=== PATIENT | male | born 1960 | race African-American/Black ===

== ENCOUNTER → 2018-10-12 | Day surgery (SDC) | payer MEDICARE, OTHER ==
[2018-10-09 08:50] LABS: ANION GAP 12.9 mmol/L (8-16); BLOOD UREA NITROGEN 21 mg/dL (7-26); BUN/CREATININE RATIO 19 (6-25); CALCIUM 9.8 mg/dL (8.4-10.2); CARBON DIOXIDE 32 mmol/L (22-29); CHLORIDE 98 mmol/L (98-107); CREATININE, SERUM 1.12 mg/dL (0.72-1.25); EST GLOMERULAR FILTRATION RATE > 60 ML/MIN (60-); GLUCOSE 139 mg/dL (74-118); POTASSIUM 3.9 mmol/L (3.5-5.1); SODIUM 139 mmol/L (136-145)
[~2018-10-12] MED LIST: ACETAMINOPHEN 1000 MG/100 ML 100 ML IV ONE; AMLODIPINE BESY10 MG PO; ASPIRIN81 MG PO; ATORVASTATIN CA20 MG PO; BACITRACIN 50,000 UNIT VIAL ONE; CEFTRIAXONE SOD 1 GM VIAL ONE; DEXAMETHASONE SOD PHOS INJ 4 MG/ML VIAL ONE; EPHEDRINE SULFATE INJ 50 MG/10 ML SYR ONE; FENTANYL CITRATE/PF 100MCG/2 ML INJ ONE; GLIPIZIDE5 MG PO; HUMULIN R100 UNIT/2 SQ; INDAPAMIDE1.25 MG PO; LANTUS 3ML100 UNITS/ SQ; LIDOCAINE HCL 1% 30ML-PF VIAL ONE; LIDOCAINE HCL 2% LOCAL INJ 5 ML SDV VIAL INJ ONE; LISINOPRIL10 MG PO; MIDAZOLAM HCL 2 MG/2 ML VIAL ONE; OMEPRAZOLE40 MG PO; ONDANSETRON HCL INJ 2 MG/ML VIAL ONE; PHENYLEPHRINE HCL 1% 10 MG/ML VIAL ONE; PROPOFOL IV EMULSION 10 MG/ML 20 ML VIAL ONE; SEVOFLURANE INHAL SOLN 250 ML PEN BTL ONE
--- OUTSIDE RECORDS SUMMARY | 2018-10-12 07:49 | XMS REPORT | Summary of Care ---
Author Author [facility] Organization [facility] Address Unknown Phone Unavailable Encounter [facility](CORNEL) [id number] Date(s): 08/11/16 - 08/13/16 [facility] [address] [place] [address]- Final: Unilateral primary osteoarthritis, right knee Discharge Disposition: Home or Self Care Attending Physician: Saul Angel MD Admitting Physician: Saul Angel MD Referring Physician: Saul Angel MD Vital Signs 1 2 3 Most recent to oldest [Reference Range]: 165.1 cm (08/11/16 5:51 PM) 162.56 cm (07/29/16 8:22 AM) Height 98.7 DegF (08/13/16 7:14 AM) 98.9 DegF (08/13/16 4:05 AM) 99.1 DegF (08/12/16 11:59 PM) Temperature Oral [96.4-99.1 DegF] 130/78 mmHg (08/13/16 12:13 PM) 153/88 mmHg *HI* (08/13/16 9:29 AM) 180/80 mmHg *HI* (08/13/16 9:17 AM) Blood Pressure [90-140/60-90 mmHg] 11 BRMIN *LOW* (08/13/16 9:17 AM) 20 BRMIN (08/13/16 7:14 AM) 20 BRMIN (08/13/16 4:05 AM) Respiratory Rate [14-20 BRMIN] 72 bpm (08/13/16 7:14 AM) 70 bpm (08/13/16 4:05 AM) 65 bpm (08/12/16 11:59 PM) Peripheral Pulse Rate [60-100 bpm] 121.449 kg (08/11/16 5:51 PM) 97.909 kg (07/29/16 8:22 AM) Weight 44.56 m2 (08/11/16 5:51 PM) 37.05 m2 (07/29/16 8:22 AM) Body Mass Index Problem List Condition Effective Dates Status Health Status Informant Diabetes(Confirmed) Active Reflux Active esophagitis(Confirme d) HTN Active (hypertension)(Confi rmed) Knee pain(Confirmed) Active Allergies, Adverse Reactions, Alerts Substance Reaction Severity Status NKDA Active Medications acetaminophen (ANES) Route: IV, Drug form: INJ, ONCE, Stop date: 08/11/16 10:27:00 CDT Start Date: 08/11/16 Stop Date: 08/11/16 Status: Completed amLODIPine 10 mg, 1 tab, Route: PO, Drug form: TAB, Daily, Dosing Weight 97.909, kg, Start date: 08/12/16 9:00:00 CDT, Duration: 30 day, Stop date: 09/10/16 9:00:00 CDT Notes: (Same as: Norvasc) Start Date: 08/12/16 Stop Date: 08/13/16 Status: Discontinued amLODIPine 10 mg oral tablet 10 mg=1 tab, PO, Daily, # 30 tab, 0 Refill(s) Start Date: 07/28/16 Status: Ordered Aspirin Enteric Coated 81 mg, 1 tab, Route: PO, Drug form: ECTAB, Daily, Dosing Weight 97.909, kg, Star t date: 08/12/16 9:00:00 CDT, Duration: 30 day, Stop date: 09/10/16 9:00:00 CDT Notes: Do not crush or chew.(Same As: Ecotrin) Start Date: 08/12/16 Stop Date: 08/13/16 Status: Discontinued Aspirin Enteric Coated 81 mg oral delayed release tablet 81 mg=1 tab, PO, Daily, 0 Refill(s) Start Date: 07/28/16 Status: Ordered ceFAZolin (ANES) Route: IV, Drug form: INJ, ONCE, Stop date: 08/11/16 10:27:00 CDT Start Date: 08/11/16 Stop Date: 08/11/16 Status: Completed ceFAZolin (SCIP) + sodium chloride 0.9% 100 mL INJ (for IV set) 100 mL 2 gm, Route: IVPB, Q6H, Dosing Weight 97.909, kg, Start date: 08/11/16 16:00:00 CDT, Duration: 3 doses or times, Stop date: 08/12/16 4:00:00 CDT Notes: (Same As: Deepali Malin) MEDICATION WASTE Product Size: 1000 mgP roduct Wasted: ___ mg Start Date: 08/11/16 Stop Date: 08/12/16 Status: Completed celecoxib 200 mg, 1 cap, Route: PO, Drug form: CAP, B90Mbid, Dosing Weight 97.909, kg, Sta rt date: 08/11/16 12:00:00 CDT, Duration: 30 day, Stop date: 09/10/16 0:00:00 CD T Notes: NSAID. Please check indication. Not for seizure. (Same As: CeleBREX) Start Date: 08/11/16 Stop Date: 08/13/16 Status: Discontinued cloNIDine Route: EPIDURAL, Drug form: INJ, ONCE, Start date: 08/11/16 9:00:00 CDT, Stop da te: 08/11/16 9:00:00 CDT Notes: NOT FOR INTRAVENOUS USE. Preservative-free.(Same As: Duraclon) Start Date: 08/11/16 Stop Date: 08/11/16 Status: Completed cloNIDine (ANES) Route: INTRATHECAL, Drug form: INJ, ONCE, Stop date: 08/11/16 10:47:00 CDT Start Date: 08/11/16 Stop Date: 08/11/16 Status: Completed Dextrose 50% Syringe 12.5 gm, 25 mL, Route: IVP, Drug Form: INJ, Dosing Weight 97.909, kg, PRN, PRN B lood Glucose Results, Start date: 08/11/16 11:56:00 CDT, Duration: 30 day, Stop date: 09/10/16 11:55:00 CDT Start Date: 08/11/16 Stop Date: 08/13/16 Status: Discontinued docusate 100 mg, 1 cap, Route: PO, Drug form: CAP, BID, Dosing Weight 97.909, kg, Start d ate: 08/11/16 17:00:00 CDT, Duration: 30 day, Stop date: 09/10/16 9:00:00 CDT Notes: (Same as: Colace) (Do Not Crush) Start Date: 08/11/16 Stop Date: 08/13/16 Status: Discontinued docusate sodium 100 mg oral capsule 100 mg=1 cap, PO, BID, # 20 cap, 0 Refill(s) Start Date: 08/12/16 Status: Ordered DuoNeb inhalation solution 3 ml, Route: NEB, Drug Form: SOLN, Dosing Weight 97.909, kg, PRN, PRN Respirator y Protocol, Start date: 08/11/16 9:01:00 CDT, Duration: 30 day, Stop date: 09/10 9:00:00 CDT Notes: (Same as: Duoneb) Start Date: 08/11/16 Stop Date: 08/11/16 Status: Discontinued famotidine (ANES) Route: IV, Drug form: INJ, ONCE, Stop date: 08/11/16 10:27:00 CDT Start Date: 08/11/16 Stop Date: 08/11/16 Status: Completed fentaNYL (ANES) Route: IV, Drug form: INJ, ONCE, Stop date: 08/11/16 10:27:00 CDT Start Date: 08/11/16 Stop Date: 08/11/16 Status: Completed glipiZIDE 5 mg oral tablet 5 mg=1 tab, PO, BID-Before Meals, # 30 tab, 1 Refill(s) Start Date: 07/28/16 Status: Ordered glipiZIDE 5 mg oral tablet 5 mg, 1 tab, Route: PO, Drug form: TAB, BID-Before Meals, Dosing Weight 97.909, kg, Start date: 08/11/16 16:30:00 CDT, Duration: 30 day, Stop date: 09/10/16 7:3 0:00 CDT Notes: (Same as: Glucotrol) 30 min before meals. Start Date: 08/11/16 Stop Date: 08/13/16 Status: Discontinued glycopyrrolate (ANES) Route: IV, Drug form: INJ, ONCE, Stop date: 08/11/16 10:52:00 CDT Start Date: 08/11/16 Stop Date: 08/11/16 Status: Completed Humulin N 30 unit, 0.3 mL, Route: SUB-Q, Drug form: INJ, BID, Dosing Weight 97.909, kg, St art date: 08/11/16 17:00:00 CDT, Duration: 30 day, Stop date: 09/10/16 9:00:00 C DT Notes: Roll in palms of hands gently; Do not shake vigorously. (Same as: Humuli n N)Do not hold insulin without contacting prescriberWASTE: F/P - Black; E - [facility] Stable for 28 days at room temperatureExpires in days f rom Date Start Date: 08/11/16 Stop Date: 08/13/16 Status: Discontinued Humulin N 100 units/mL 30 units, SUB-Q, BID, # 10 mL, 0 Refill(s) Start Date: 07/28/16 Status: Ordered hydrOXYzine 25 mg, 1 tab, Route: PO, Drug form: TAB, Q6H, Dosing Weight 97.909, kg, PRN Itch ing, Start date: 08/11/16 11:56:00 CDT, Duration: 30 day, Stop date: 09/10/16 11 :55:00 CDT Notes: (Same as: Atarax) Avoid alcohol. Start Date: 08/11/16 Stop Date: 08/13/16 Status: Discontinued indapamide 2.5 mg oral tablet 2.5 mg=1 tab, PO, QAM, # 30 tab, 0 Refill(s) Start Date: 07/28/16 Status: Ordered indapamide 2.5 mg oral tablet 2.5 mg, 1 tab, Route: PO, Drug form: TAB, QAM, Dosing Weight 97.909, kg, Start d ate: 08/12/16 9:00:00 CDT, Duration: 30 day, Stop date: 09/10/16 9:00:00 CDT Notes: (Same as: Lozol) Start Date: 08/12/16 Stop Date: 08/13/16 Status: Discontinued insulin aspart 10 unit, 0.1 mL, Route: SUB-Q, Drug form: SOLN, TID-Before Meals, Dosing Weight 97.909, kg, PRN Blood Glucose Results, Start date: 08/11/16 11:56:00 CDT, Durati on: 30 day, Stop date: 09/10/16 11:55:00 CDT Notes: Roll in palms of hands gently; Do not shake vigorously. (Same as: Serg Martinez)"single patient use only"WASTE: F/P - Black; E - [facility] Trash Bin Stable f or 28 days at room temperature.Expires in days from Date Start Date: 08/11/16 Stop Date: 08/13/16 Status: Discontinued insulin aspart 6 unit, 0.06 mL, Route: SUB-Q, Drug form: SOLN, TID-Before Meals, Dosing Weight 97.909, kg, PRN Blood Glucose Results, Start date: 08/11/16 11:56:00 CDT, Durati on: 30 day, Stop date: 09/10/16 11:55:00 CDT Notes: Roll in palms of hands gently; Do not shake vigorously. (Same as: Serg Martinez)"single patient use only"WASTE: F/P - Black; E - [facility] Trash Bin Stable f or 28 days at room temperature.Expires in days from Date Start Date: 08/11/16 Stop Date: 08/13/16 Status: Discontinued insulin aspart 8 unit, 0.08 mL, Route: SUB-Q, Drug form: SOLN, TID-Before Meals, Dosing Weight 97.909, kg, PRN Blood Glucose Results, Start date: 08/11/16 11:56:00 CDT, Durati on: 30 day, Stop date: 09/10/16 11:55:00 CDT Notes: Roll in palms of hands gently; Do not shake vigorously. (Same as: Serg Martinez)"single patient use only"WASTE: F/P - Black; E - [facility] Trash Bin Stable f or 28 days at room temperature.Expires in days from Date Start Date: 08/11/16 Stop Date: 08/13/16 Status: Discontinued insulin aspart 2 unit, 0.02 mL, Route: SUB-Q, Drug form: SOLN, TID-Before Meals, Dosing Weight 97.909, kg, PRN Blood Glucose Results, Start date: 08/11/16 11:56:00 CDT, Durati on: 30 day, Stop date: 09/10/16 11:55:00 CDT Notes: Roll in palms of hands gently; Do not shake vigorously. (Same as: NovoLO G)"single patient use only"WASTE: F/P - Black; E - [facility] Trash Bin Stable f or 28 days at room temperature.Expires in days from Date Start Date: 08/11/16 Stop Date: 08/13/16 Status: Discontinued insulin aspart 4 unit, 0.04 mL, Route: SUB-Q, Drug form: SOLN, TID-Before Meals, Dosing Weight 97.909, kg, PRN Blood Glucose Results, Start date: 08/11/16 11:56:00 CDT, Durati on: 30 , Stop date: 09/10/16 11:55:00 CDT Notes: Roll in palms of hands gently; Do not shake vigorously. (Same as: NovoMIMI G)"single patient use only"WASTE: F/P - Black; E - [facility] Trash Bin Stable f or 28 days at room temperature.Expires in days from Date Start Date: 08/11/16 Stop Date: 08/13/16 Status: Discontinued ketOROLAC (ANES) IV, ONCE Start Date: 08/11/16 Stop Date: 08/11/16 Status: Completed Lactated Ringers 1,000 mL 1,000 mL, Rate: 25 ml/hr, Infuse over: 40 hr, Route: IV, Dosing Weight 97.909 kg , Total Volume: 1,000, Start date: 08/11/16 9:01:00 CDT, Stop date: 08/11/16 20: 00:00 CDT Start Date: 08/11/16 Stop Date: 08/11/16 Status: Discontinued Lantus 100 units/mL 20 unit, SUB-Q, Bedtime, # 10 mL, 3 Refill(s) Start Date: 07/28/16 Status: Ordered Lantus 100 units/mL 20 unit, Route: SUB-Q, Drug form: SOLN, Bedtime, Dosing Weight 97.909, kg, Start date: 08/11/16 21:00:00 CDT, Duration: 30 day, Stop date: 09/09/16 21:00:00 CDT Start Date: 08/11/16 Stop Date: 08/11/16 Status: Deleted Levemir FlexPen 20 unit, 0.2 mL, Route: SUB-Q, Drug form: INJ, Bedtime, Start date: 08/11/16 21: 00:00 CDT, Duration: 30 day, Stop date: 09/09/16 21:00:00 CDT Notes: Same as LevemirDo not hold insulin without contacting prescriberWASTE: F/ P - Black; E - [facility] Trash [facility] "single patient use only" Start Date: 08/11/16 Stop Date: 08/13/16 Status: Discontinued lidocaine (ANES) Route: IV, Drug form: INJ, ONCE, Stop date: 08/11/16 11:09:00 CDT Start Date: 08/11/16 Stop Date: 08/11/16 Status: Completed lisinopril 20 mg, 1 tab, Route: PO, Drug form: TAB, Daily, Dosing Weight 97.909, kg, Start date: 08/12/16 9:00:00 CDT, Duration: 30 day, Stop date: 09/10/16 9:00:00 CDT Notes: (Same as: Prinivil Zestril) Start Date: 08/12/16 Stop Date: 08/13/16 Status: Discontinued lisinopril 20 mg oral tablet 20 mg=1 tab, PO, Daily, # 30 tab, 0 Refill(s) Start Date: 07/28/16 Stop Date: 08/11/16 Status: Deleted lisinopril 20 mg oral tablet 20 mg=1 tab, PO, Daily, # 30 tab, 0 Refill(s) Start Date: 07/29/16 Status: Ordered LR 1000 mL INJ (ANES) Route: IV, Total Volume: 1,000, Start date: 08/11/16 9:30:00 CDT, Stop date: 10:30:00 CDT Start Date: 08/11/16 Stop Date: 08/11/16 Status: Completed metoclopramide (ANES) Route: IV, Drug form: INJ, ONCE, Stop date: 08/11/16 11:09:00 CDT Start Date: 08/11/16 Stop Date: 08/11/16 Status: Completed midazolam (ANES) Route: IV, Drug form: SOLN, ONCE, Stop date: 08/11/16 10:27:00 CDT Start Date: 08/11/16 Stop Date: 08/11/16 Status: Completed morphine Sulfate 4 mg, 1 mL, Route: IVP, Drug form: INJ, Q4H, Dosing Weight 121.449, kg, PRN Pain Score 7-10, Start date: 08/12/16 8:20:00 CDT, Duration: 30 day, Stop date: 08/28 04/12 8:19:00 CDT Notes: (Same as:MORPhine Sulfate) Start Date: 08/12/16 Stop Date: 08/13/16 Status: Discontinued morphine Sulfate (ANES) Route: INTRATHECAL, Drug form: INJ, ONCE, Stop date: 08/11/16 10:47:00 CDT Start Date: 08/11/16 Stop Date: 08/11/16 Status: Completed MORPhine sulfate CREDIT SUPPORT SPECIALIST 30 mg/30 ml INJ syringe 30 mg 30 mg, 30 mL, Route: IV, Initial Loading Dose: 2 mg, CREDIT SUPPORT SPECIALIST Dose: 1 mg, CREDIT SUPPORT SPECIALIST Lockou t: 10 minutes, Continuous Basal Rate: 0 mg, 4 Hour Limit (In MG): 30, Drug Form: INJ, Continuous, Start date: 08/11/16 12:00:00 CDT, Duration: 30 day, Stop date: 09/10/16... Notes: Dose: Delay: Basal rate: 4hr limit:( Same as:Aliciai-Jealysa) Start Date: 08/11/16 Stop Date: 08/12/16 Status: Discontinued naloxone 0.04 mg, 0.1 mL, Route: IVP, Drug form: INJ, Q2MIN, Dosing Weight 97.909, kg, VT N Narcotic Reversal, Start date: 08/11/16 11:56:00 CDT, Duration: 30 day, Stop d ate: 09/10/16 11:55:00 CDT Notes: Same as Narcan Start Date: 08/11/16 Stop Date: 08/12/16 Status: Discontinued naloxone 0.04 mg, 0.1 mL, Route: IVP, Drug form: INJ, Q2MIN, Dosing Weight 121.449, kg, P RN Narcotic Reversal, Start date: 08/12/16 8:19:00 CDT, Duration: 30 day, Stop d ate: 09/11/16 8:18:00 CDT Notes: Same as Narcan Start Date: 08/12/16 Stop Date: 08/13/16 Status: Discontinued neostigmine (ANES) Route: IV, Drug form: INJ, ONCE, Stop date: 08/11/16 11:48:00 CDT Start Date: 08/11/16 Stop Date: 08/11/16 Status: Completed omeprazole 20 mg, Route: PO, Drug form: ECTAB, Daily, Dosing Weight 97.909, kg, Start date: 08/12/16 9:00:00 CDT, Duration: 30 day, Stop date: 09/10/16 9:00:00 CDT Start Date: 08/12/16 Stop Date: 08/11/16 Status: Deleted omeprazole 20 mg oral enteric coated tablet 20 mg=1 tab, PO, Daily, # 30 tab, 3 Refill(s) Start Date: 07/28/16 Status: Ordered ondansetron 4 mg, 2 mL, Route: IVP, Drug form: INJ, Q8H, Dosing Weight 97.909, kg, PRN Nause a & Vomiting, Start date: 08/11/16 11:56:00 CDT, Duration: 30 day, Stop date: 09/10/16 11:55:00 CDT Notes: (Same as: Hannah) MEDICATION WASTE Product Size: 4 mgProduct Was franklyn: ___ mg Start Date: 08/11/16 Stop Date: 08/13/16 Status: Discontinued ondansetron (ANES) Route: IV, Drug form: INJ, ONCE, Stop date: 08/11/16 11:48:00 CDT Start Date: 08/11/16 Stop Date: 08/11/16 Status: Completed phenylephrine (ANES) Route: IV, Drug form: INJ, ONCE, Stop date: 08/11/16 10:47:00 CDT Start Date: 08/11/16 Stop Date: 08/11/16 Status: Completed pneumococcal 23-valent vaccine 0.5 mL, Route: IM, Drug Form: INJ, ONCALL, Start date: 08/11/16 18:25:42 CDT, St op date: 09/10/16 18:20:42 CDT Notes: (Same as: Pneumovax 23) Refrigerate Start Date: 08/11/16 Stop Date: 08/13/16 Status: Discontinued propofol (ANES) Route: IV, Drug form: INJ, ONCE, Stop date: 08/11/16 11:09:00 CDT Start Date: 08/11/16 Stop Date: 08/11/16 Status: Completed Protonix 40 mg, 1 tab, Route: PO, Drug form: ECTAB, Before Dinner, Start date: 08/11/16 1 6:30:00 CDT, Duration: 30 day, Stop date: 09/09/16 16:30:00 CDT Notes: Tablet should not be chewed or crushed.(Same as: Protonix) Start Date: 08/11/16 Stop Date: 08/13/16 Status: Discontinued rivaroxaban 10 mg, 1 tab, Route: PO, Drug form: TAB, Daily, Dosing Weight 97.909, kg, Start date: 08/12/16 9:00:00 CDT, Duration: 30 day, Stop date: 09/10/16 9:00:00 CDT Notes: (Same as: Xarelto)Do Not Crush Start Date: 08/12/16 Stop Date: 08/13/16 Status: Discontinued rivaroxaban 10 mg oral tablet 10 mg=1 tab, PO, Daily, # 14 tab, 0 Refill(s) Start Date: 08/12/16 Status: Ordered rocuronium (ANES) Route: IV, Drug form: INJ, ONCE, Stop date: 08/11/16 11:09:00 CDT Start Date: 08/11/16 Stop Date: 08/11/16 Status: Completed Saline Flush 0.9% 10 ml, Route: IVP, Drug Form: INJ, Dosing Weight 121.449, kg, Q12H, Start date: 08/12/16 9:00:00 CDT, Duration: 30 day, Stop date: 09/10/16 21:00:00 CDT Notes: Same as: BD Posiflush Sterile Start Date: 08/12/16 Stop Date: 08/13/16 Status: Discontinued Saline Flush 0.9% 10 ml, Route: IVP, Drug Form: INJ, Dosing Weight 121.449, kg, PRN, PRN Line Flus h, Start date: 08/12/16 8:18:00 CDT, Duration: 30 day, Stop date: 09/11/16 8:17: 00 CDT Notes: Same as: BD Posiflush Sterile Start Date: 08/12/16 Stop Date: 08/13/16 Status: Discontinued sodium chloride 0.45% 1000 ml INJ 1,000 mL 1,000 mL, Rate: 75 ml/hr, Infuse over: 13.3 hr, Route: IV, Dosing Weight 97.909 kg, Total Volume: 1,000, Start date: 08/11/16 11:56:00 CDT, Duration: 30 day, St op date: 09/10/16 11:55:00 CDT Start Date: 08/11/16 Stop Date: 08/12/16 Status: Discontinued tranexamic acid (ANES) Route: IV, Drug form: INJ, ONCE, Stop date: 08/11/16 10:47:00 CDT Start Date: 08/11/16 Stop Date: 08/11/16 Status: Completed Results ELECTROLYTES Most recent to 1 2 oldest [Reference Range]: Sodium Lvl [135-145 139 mEq/L 139 mEq/L mEq/L] (08/12/16 4:04 AM) (07/29/16 8:43 AM) Potassium Lvl 3.7 mEq/L 3.8 mEq/L [3.5-5.1 mEq/L] (08/12/16 4:04 AM) (07/29/16 8:43 AM) Chloride Lvl [95-109 99 mEq/L 102 mEq/L mEq/L] (08/12/16 4:04 AM) (07/29/16 8:43 AM) CO2 [24-32 mEq/L] 32 mEq/L 29 mEq/L (08/12/16 4:04 AM) (07/29/16 8:43 AM) AGAP [10.0-20.0 11.7 mEq/L 11.8 mEq/L mEq/L] (08/12/16 4:04 AM) (07/29/16 8:43 AM) CHEM PANEL Most recent to 1 2 oldest [Reference Range]: Creatinine Lvl 0.96 mg/dL 0.98 mg/dL [0.50-1.40 mg/dL] (08/12/16 4:04 AM) (07/29/16 8:43 AM) eGFR 103 mL/min/1.73m2 1 101 mL/min/1.73m2 2 *NA* *NA* (08/12/16 4:04 AM) (07/29/16 8:43 AM) BUN [7-22 mg/dL] 18 mg/dL 23 mg/dL (08/12/16 4:04 AM) *HI* (07/29/16 8:43 AM) B/C Ratio [6-25] 23 (07/29/16 8:43 AM) Glucose Lvl [70-99 204 mg/dL 255 mg/dL mg/dL] *HI* *HI* (08/12/16 4:04 AM) (07/29/16 8:43 AM) Total Protein 7.5 g/dL [6.4-8.4 g/dL] (07/29/16 8:43 AM) Albumin Lvl [3.5-5.0 3.3 g/dL g/dL] *LOW* (07/29/16 8:43 AM) Globulin [2.7-4.2 4.2 g/dL g/dL] (07/29/16 8:43 AM) A/G Ratio [0.7-1.6] 0.8 (07/29/16 8:43 AM) Calcium Lvl 8.1 mg/dL 9.0 mg/dL [8.5-10.5 mg/dL] *LOW* (07/29/16 8:43 AM) (08/12/16 4:04 AM) ALT [0-65 unit/L] 87 unit/L *HI* (07/29/16 8:43 AM) AST [0-37 unit/L] 57 unit/L *HI* (07/29/16 8:43 AM) Alk Phos [39-136 96 unit/L unit/L] (07/29/16 8:43 AM) Bili Total [0.2-1.3 0.6 mg/dL mg/dL] (07/29/16 8:43 AM) 1Result Comment: The eGFR is calculated using the CKD-EPI formula. In most young, healthy individuals the eGFR will be >90 mL/min/1.73m2. The eGFR declines with age. An eGFR of 60-89 may be normal in some populations, particularly the elderly, for whom the CKD-EPI formula has not been extensively validated. Use of the eGFR is not recommended in the following populations: Individuals with unstable creatinine concentrations, including patients and those with serious co-morbid conditions. Patients with extremes in muscle mass or diet. The data above are obtained from the National Kidney Disease Education Program ( NKDEP) which additionally recommends that when the eGFR is used in patients with extremes of body mass index for purposes of drug dosing, the eGFR should be mul tiplied by the estimated BMI. 2Result Comment: The eGFR is calculated using the CKD-EPI formula. In most young, healthy individuals the eGFR will be >90 mL/min/1.73m2. The eGFR declines with age. An eGFR of 60-89 may be normal in some populations, particularly the elderly, for whom the CKD-EPI formula has not been extensively validated. Use of the eGFR is not recommended in the following populations: Individuals with unstable creatinine concentrations, including patients and those with serious co-morbid conditions. Patients with extremes in muscle mass or diet. The data above are obtained from the National Kidney Disease Education Program ( NKDEP) which additionally recommends that when the eGFR is used in patients with extremes of body mass index for purposes of drug dosing, the eGFR should be mul tiplied by the estimated BMI. SPECIAL CHEMISTRY Most recent to 1 2 oldest [Reference Range]: Hgb A1C [<=5.6 %] 9.4 % *HI* (08/12/16 4:04 AM) URINE AND STOOL Most recent to 1 2 oldest [Reference Range]: UA Turbidity [Clear] Clear (07/29/16 8:43 AM) UA Color [Yellow] Yellow *NA* (07/29/16 8:43 AM) UA pH [5.0-8.0] 5.5 (07/29/16 8:43 AM) UA Spec Grav 1.025 [<=1.030] (07/29/16 8:43 AM) UA Glucose [Negative >=1000 mg/dL mg/dL] *ABN* (07/29/16 8:43 AM) UA Blood [Negative] Moderate *ABN* (07/29/16 8:43 AM) UA Ketones Negative [Negative] *NA* (07/29/16 8:43 AM) UA Protein [Negative 100 mg/dL mg/dL] *ABN* (07/29/16 8:43 AM) UA Urobilinogen 1.0 EU/dL [0.1-1.0 EU/dL] (07/29/16 8:43 AM) UA Bili [Negative] Negative *NA* (07/29/16 8:43 AM) UA Leuk Est Negative [Negative] (07/29/16 8:43 AM) UA Nitrite Negative [Negative] (07/29/16 8:43 AM) UA WBC [None Seen 0-2 /HPF /HPF] (07/29/16 8:43 AM) UA RBC [0-2 /HPF] 0-2 /HPF (07/29/16 8:43 AM) UA Bacteria [None Occasional /HPF Seen /HPF] (07/29/16 8:43 AM) UA Sq Epi [Few /LPF] Occasional /LPF (07/29/16 8:43 AM) UA Mucus [None Seen] None Seen (07/29/16 8:43 AM) Micro? Performed (07/29/16 8:43 AM) HEMATOLOGY Most recent to 1 2 oldest [Reference Range]: WBC [3.7-10.4 K/CMM] 7.1 K/CMM 5.9 K/CMM (08/12/16 4:04 AM) (07/29/16 8:43 AM) RBC [4.70-6.10 4.73 M/CMM 5.60 M/CMM M/CMM] (08/12/16 4:04 AM) (07/29/16 8:43 AM) Hgb [14.0-18.0 g/dL] 14.0 g/dL 16.5 g/dL (08/12/16 4:04 AM) (07/29/16 8:43 AM) Hct [42.0-54.0 %] 41.5 % 48.6 % *LOW* (07/29/16 8:43 AM) (08/12/16 4:04 AM) MCV [80.0-94.0 fL] 87.8 fL 86.9 fL (08/12/16 4:04 AM) (07/29/16 8:43 AM) MCH [27.0-31.0 pg] 29.5 pg 29.5 pg (08/12/16 4:04 AM) (07/29/16 8:43 AM) MCHC [32.0-36.0 33.6 g/dL 33.9 g/dL g/dL] (08/12/16 4:04 AM) (07/29/16 8:43 AM) RDW [11.5-14.5 %] 13.4 % 13.5 % (08/12/16 4:04 AM) (07/29/16 8:43 AM) Platelet [133-450 116 K/CMM 127 K/CMM K/CMM] *LOW* *LOW* (08/12/16 4:04 AM) (07/29/16 8:43 AM) MPV [7.4-10.4 fL] 8.8 fL 9.0 fL (08/12/16 4:04 AM) (07/29/16 8:43 AM) Segs [45.0-75.0 %] 72.0 % (07/29/16 8:43 AM) Lymphocytes 17.1 % [20.0-40.0 %] *LOW* (07/29/16 8:43 AM) Monocytes [2.0-12.0 7.5 % %] (07/29/16 8:43 AM) Eosinophils [0.0-4.0 2.9 % %] (07/29/16 8:43 AM) Basophils [0.0-1.0 0.5 % %] (07/29/16 8:43 AM) Segs-Bands # 4.3 K/CMM [1.5-8.1 K/CMM] (07/29/16 8:43 AM) Lymphocytes # 1.0 K/CMM [1.0-5.5 K/CMM] (9/1/16 8:43 AM) Monocytes # [0.0-0.8 0.4 K/CMM K/CMM] (07/29/16 8:43 AM) Eosinophils # 0.2 K/CMM [0.0-0.5 K/CMM] (07/29/16 8:43 AM) PT [12.0-14.7 13.4 seconds seconds] (07/29/16 8:43 AM) INR [0.85-1.17] 0.99 (07/29/16 8:43 AM) PTT [22.9-35.8 35.8 seconds seconds] (07/29/16 8:43 AM) BACTERIAL - SEROLOGY Most recent to 1 2 oldest [Reference Range]: MRSA by PCR Negative (07/30/16 12:50 PM) Immunizations No data available for this section Procedures Procedure Date Related Diagnosis Body Site [email or web address] 1bilat Social History Social History Type Response Substance Abuse Use: None. Alcohol Past, Type Beer, Wine, Liquor. Started age 21 Years. Stopped age 27 Years. Previous treatment: None. Alcohol use interferes with work or home: No. Drinks more than intended: Yes. Others hurt by drinking: No. Ready to change: No. Household alcohol concerns: No. Smoking Status Former smoker; Type: Cigarettes; Started at age: 21.0; Stopped at age: 27; Ready to change: No; Concerns about tobacco use in household: No; Exposure to Tobacco Smoke None; Cigarette Smoking Last 365 Days No; Reg Smoking Cessation Counseling No Assessment and Plan No data available for this section
--- OUTSIDE RECORDS SUMMARY | 2018-10-12 07:49 | XMS REPORT ---
Author Author [facility] Organization [facility] Address Unknown Phone Unavailable Care Team Providers Care Computer Equipment Repairer Name Role Phone Abhijit PUENTES Unavailable Unavailable Payers Payer Name Policy Type Policy Number Effective Date Expiration Date Problems This patient has no known problems. Allergies, Adverse Reactions, Alerts Allergy Name Allergy Type Status Severity Reaction(s) Onset Date Inactive Date Treating Clinician Comments No Known Allergies DA Active U 2017-02-09 00:00:00 Medications This patient has no known medications. Results Test Description Test Time Test Comments Text Results Atomic Results Result Comments CHEST 2 VIEWS 2018-08-01 12:00:00 [place] [id number] Patient Name: LIBORIO GRIDER MR #: [id number] : 1960 Age/Sex: 58/M Req #: [id number] Adm Physician: Ordered by: BASHIR PUENTES MD Report #: [id number] Location: OR Room/Bed: Procedure: [id number] DX/CHEST 2 VIEWS Exam Date: 08/01/18 Exam Time: 1146 REPORT STATUS: Signed EXAMINATION: CHEST 2 VIEWS INDICATION: Erectile dysfunction. S PRE ADMIT. Surgical preop. COMPARISON: None FINDINGS: PA and lateral views TUBES and LINES: None. LUNGS: Lungs are well inflated. Lungs are clear. There is no evidence of pneumonia or pulmonary edema. PLEURA: No pleural effusion or pneumothorax. HEART AND MEDIASTINUM: The cardiomediastinal silhouette is unremarkable. BONES AND SOFT TISSUES: No acute osseous lesion. Soft tissues are unremarkable. UPPER ABDOMEN: No free air under the diaphragm. IMPRESSION: No acute thoracic abnormality. Signed by: Dr. Celia Birch M.D. on 08/01/2018 12:01 PM Dictated By: CELIA BIRCH MD 1201 Transcribed By: KELLIE on 08/01/18 1201 COPY TO: BASHIR PUENTES MD
--- OUTSIDE RECORDS SUMMARY | 2018-10-12 07:49 | XMS REPORT | Continuity of Care Document ---
Author Author [facility] Interface Address Unknown Phone Unavailable Problems Problem Status Onset Date Classification Date Reported Comments Source DEGENERATIVE JOINT DISEASE Active 07/09/2016 [facility] Final: Unilateral primary osteoarthritis, right knee 08/16/2016 [facility] Diabetes Active Problem 08/16/2016 [facility] Reflux esophagitis Active Problem 08/16/2016 [facility] HTN (<span ID="[id number]</span>) Active Problem 08/16/2016 [facility] Knee pain Active Problem 08/16/2016 [facility] UNILATERAL PRIMARY OSTEOARTHRITIS, RIGHT Active [facility] Medications Medication Details Route Status Patient Instructions Ordering Provider Order Date Source Saline Flush 0.9% 10 ml, Route: IVP, Drug Form: INJ, Dosing Weight 121.449, kg, Q12H, Start date: 08/12/16 9:00:00 CDT, Duration: 30 day, Stop date: 09/10/16 21:00:00 CDTNotes: Same as: BD Posiflush Sterile No Longer Active 08/12/2016 [facility] rivaroxaban 10 mg, 1 tab, Route: PO, Drug form: TAB, Daily, Dosing Weight 97.909, kg, Start date: 08/12/16 9:00:00 CDT, Duration: 30 day, Stop date: 09/10/16 9:00:00 CDTNotes: (Same as: Xarelto) Do Not Crush No Longer Active 08/12/2016 [facility] Omeprazole 20 mg, Route: PO, Drug form: ECTAB, Daily, Dosing Weight 97.909, kg, Start date: 08/12/16 9:00:00 CDT, Duration: 30 day, Stop date: 09/10/16 9:00:00 CDT No Longer Active 08/12/2016 [facility] Lisinopril 20 mg, 1 tab, Route: PO, Drug form: TAB, Daily, Dosing Weight 97.909, kg, Start date: 08/12/16 9:00:00 CDT, Duration: 30 day, Stop date: 09/10/16 9:00:00 CDTNotes: (Same as: Prinivil, Zestril) No Longer Active 08/12/2016 [facility] Indapamide 2.5 MG Oral Tablet 2.5 mg, 1 tab, Route: PO, Drug form: TAB, QAM, Dosing Weight 97.909, kg, Start date: 08/12/16 9:00:00 CDT, Duration: 30 day, Stop date: 09/10/16 9:00:00 CDTNotes: (Same as: Lozol) No Longer Active 08/12/2016 [facility] Aspirin Enteric Coated 81 mg, 1 tab, Route: PO, Drug form: ECTAB, Daily, Dosing Weight 97.909, kg, Start date: 08/12/16 9:00:00 CDT, Duration: 30 day, Stop date: 09/10/16 9:00:00 CDTNotes: Do not crush or chew. (Same As: Ecotrin) No Longer Active 08/12/2016 [facility] Amlodipine 10 mg, 1 tab, Route: PO, Drug form: TAB, Daily, Dosing Weight 97.909, kg, Start date: 08/12/16 9:00:00 CDT, Duration: 30 day, Stop date: 09/10/16 9:00:00 CDTNotes: (Same as: Norvasc) No Longer Active 08/12/2016 [facility] 30 ML Morphine Sulfate 5 MG/ML Injection 4 mg, 1 mL, Route: IVP, Drug form: INJ, Q4H, Dosing Weight 121.449, kg, PRN Pain Score 7-10, Start date: 08/12/16 8:20:00 CDT, Duration: 30 day, Stop date: 09/11/16 8:19:00 CDTNotes: (Same as:MORPhine Sulfate) No Longer Active 08/12/2016 [facility] rivaroxaban 10 mg oral tablet 10 mg=1 tab, PO, Daily, # 14 tab, 0 Refill(s) Active 08/12/2016 [facility] Docusate Sodium 100 MG Oral Capsule 100 mg=1 cap, PO, BID, # 20 cap, 0 Refill(s) Active 08/12/2016 [facility] Naloxone 0.04 mg, 0.1 mL, Route: IVP, Drug form: INJ, Q2MIN, Dosing Weight 121.449, kg, PRN Narcotic Reversal, Start date: 08/12/16 8:19:00 CDT, Duration: 30 day, Stop date: 09/11/16 8:18:00 CDTNotes: Same as Narcan No Longer Active 08/12/2016 [facility] Saline Flush 0.9% 10 ml, Route: IVP, Drug Form: INJ, Dosing Weight 121.449, kg, PRN, PRN Line Flush, Start date: 08/12/16 8:18:00 CDT, Duration: 30 day, Stop date: 09/11/16 8:17:00 CDTNotes: Same as: BD Posiflush Sterile No Longer Active 08/12/2016 [facility] Levemir FlexPen 20 unit, 0.2 mL, Route: SUB-Q, Drug form: INJ, Bedtime, Start date: 08/11/16 21:00:00 CDT, Duration: 30 day, Stop date: 09/09/16 21:00:00 CDTNotes: Same as Levemir Do not hold insulin without contact ing prescriber WASTE: F/P - Black; E - [employer]ash [facility] "single patient use only" No Longer Active 08/12/2016 [facility] Insulin Glargine 100 UNT/ML Injectable Solution [Lantus] 20 unit, Route: SUB-Q, Drug form: SOLN, Bedtime, Dosing Weight 97.909, kg, Start date: 08/11/16 21:00:00 CDT, Duration: 30 day, Stop date: 09/09/16 21:00:00 CDT Inactive 08/12/2016 [facility] pneumococcal capsular polysaccharide type 1 vaccine / pneumococcal capsular polysaccharide type 10A vaccine / pneumococcal capsular polysaccharide type 11A vaccine / pneumococcal capsular polysaccharide type 12F vaccine / pneumococcal capsular polysacchar 0.5 mL, Route: IM, Drug Form: INJ, ONCALL, Start date: 08/11/16 18:25:42 CDT, Stop date: 09/10/16 18:20:42 CDTNotes: (Same as: Pneumovax 23) Refrigerate No Longer Active 08/11/2016 [facility] Docusate 100 mg, 1 cap, Route: PO, Drug form: CAP, BID, Dosing Weight 97.909, kg, Start date: 08/11/16 17:00:00 CDT, Duration: 30 day, Stop date: 09/10/16 9:00:00 CDTNotes: (Same as: Colace) (Do Not Crush) No Longer Active 08/11/2016 [facility] Humulin N 30 unit, 0.3 mL, Route: SUB-Q, Drug form: INJ, BID, Dosing Weight 97.909, kg, Start date: 08/11/16 17:00:00 CDT, Duration: 30 day, Stop date: 09/10/16 9:00:00 CDTNotes: Roll in palms of hands gently; Do not shake vigorously. (Same as: Humulin N) Do not hold insulin without contacting prescriber WASTE: F/P - Black; E - [employer] [facility]ash [facility] Stable for 28 days at room temperature Expires in days from Date No Longer Active 08/11/2016 [facility] Protonix 40 mg, 1 tab, Route: PO, Drug form: ECTAB, Before Dinner, Start date: 08/11/16 16:30:00 CDT, Duration: 30 day, Stop date: 09/09/16 16:30:00 CDTNotes: Tablet should not be chewed or crushed. (Same as: Protonix) No Longer Active 08/11/2016 [facility] Glipizide 5 MG Oral Tablet 5 mg, 1 tab, Route: PO, Drug form: TAB, BID-Before Meals, Dosing Weight 97.909, kg, Start date: 08/11/16 16:30:00 CDT, Duration: 30 day, Stop date: 09/10/16 7:30:00 CDTNotes: (Same as: Glucotrol) 30 min before meals. No Longer Active 08/11/2016 [facility] ceFAZolin (SCIP) + sodium chloride 0.9% 100 mL INJ (for IV set) 100 mL 2 gm, Route: IVPB, Q6H, Dosing Weight 97.909, kg, Start date: 08/11/16 16:00:00 CDT, Duration: 3 doses or times, Stop date: 08/12/16 4:00:00 CDTNotes: (Same As: Deepali Malin) MEDICATION WASTE Product Size: 1000 mg Product Wasted: ___ mg No Longer Active 08/11/2016 [facility] Morphine 30 mg, 30 mL, Route: IV, Initial Loading Dose: 2 mg, [employer] Dose: 1 mg, [employer] Lockout: 10 minutes, Continuous Basal Rate: 0 mg, 4 Hour Limit (In MG): 30, Drug Form: INJ, Continuous, Start date: 08/11/16 12: 00:00 CDT, Duration: 30 day, Stop date: 09/10/16...Notes: Dose: Delay: Basal rate: 4hr limit: (Same as:Debbie) No Longer Active 08/11/2016 [facility] celecoxib 200 mg, 1 cap, Route: PO, Drug form: CAP, [id number], Dosing Weight 97.909, kg, Start date: 08/11/16 12:00:00 CDT, Duration: 30 day, Stop date: 09/10/16 0:00:00 CDTNotes: NSAID. Please check indication. Not for seizure. (Same As: CeleBREX) No Longer Active 08/11/2016 [facility] Naloxone 0.04 mg, 0.1 mL, Route: IVP, Drug form: INJ, Q2MIN, Dosing Weight 97.909, kg, PRN Narcotic Reversal, Start date: 08/11/16 11:56:00 CDT, Duration: 30 day, Stop date: 09/10/16 11:55:00 CDTNotes: Same as Narcan No Longer Active 08/11/2016 [facility] Insulin, Aspart, Human 10 unit, 0.1 mL, Route: SUB-Q, Drug form: SOLN, TID-Before Meals, Dosing Weight 97.909, kg, PRN Blood Glucose Results, Start date: 08/11/16 11:56:00 CDT, Duration: 30 day, Stop date: 09/10/16 11:55:00 CDTNotes: Roll in palms of hands gently; Do not shake vigorously. (Same as: NovoLOG) "single patient use only" WASTE: F/P - Black; E - [employer] [facility] Stable for 28 days at room temperature. Expires in days from Date No Longer Active 08/11/2016 [facility] Hydroxyzine 25 mg, 1 tab, Route: PO, Drug form: TAB, Q6H, Dosing Weight 97.909, kg, PRN Itching, Start date: 08/11/16 11:56:00 CDT, Duration: 30 day, Stop date: 09/10/16 11:55:00 CDTNotes: (Same as: Atarax) Ritesh id alcohol. No Longer Active 08/11/2016 [facility] Ondansetron 4 mg, 2 mL, Route: IVP, Drug form: INJ, Q8H, Dosing Weight 97.909, kg, PRN Nausea & Vomiting, Start date: 08/11/16 11:56:00 CDT, Duration: 30 day, Stop date: 09/10/16 11:55:00 CDTNotes: (Same as: Hannah) MEDICATION WASTE Product Size: 4 mg Product Wasted: ___ mg No Longer Active 08/11/2016 [facility] Dextrose 50% Syringe 12.5 gm, 25 mL, Route: IVP, Drug Form: INJ, Dosing Weight 97.909, kg, PRN, PRN Blood Glucose Results, Start date: 08/11/16 11:56:00 CDT, Duration: 30 day, Stop date: 09/10/16 11:55:00 CDT No Longer Active 08/11/2016 [facility] sodium chloride 0.45% 1000 ml INJ 1,000 mL 1,000 mL, Rate: 75 ml/hr, Infuse over: 13.3 hr, Route: IV, Dosing Weight 97.909 kg, Total Volume: 1,000, Start date: 08/11/16 11:56:00 CDT, Duration: 30 day, Stop date: 09/10/16 11:55:00 CDT No Longer Active 08/11/2016 [facility] neostigmine (ANES) Route: IV, Drug form: INJ, ONCE, Stop date: 08/11/16 11:48:00 CDT Inactive 08/11/2016 [facility] ketOROLAC (ANES) IV, ONCE Inactive 08/11/2016 [facility] ondansetron (ANES) Route: IV, Drug form: INJ, ONCE, Stop date: 08/11/16 11:48:00 CDT Inactive 08/11/2016 [facility] rocuronium (ANES) Route: IV, Drug form: INJ, ONCE, Stop date: 08/11/16 11:09:00 CDT Inactive 08/11/2016 [facility] propofol (ANES) Route: IV, Drug form: INJ, ONCE, Stop date: 08/11/16 11:09:00 CDT Inactive 08/11/2016 [facility] metoclopramide (ANES) Route: IV, Drug form: INJ, ONCE, Stop date: 08/11/16 11:09:00 CDT Inactive 08/11/2016 [facility] lidocaine (ANES) Route: IV, Drug form: INJ, ONCE, Stop date: 08/11/16 11:09:00 CDT Inactive 08/11/2016 [facility] glycopyrrolate (ANES) Route: IV, Drug form: INJ, ONCE, Stop date: 08/11/16 10:52:00 CDT Inactive 08/11/2016 [facility] tranexamic acid (ANES) Route: IV, Drug form: INJ, ONCE, Stop date: 08/11/16 10:47:00 CDT Inactive 08/11/2016 [facility] phenylephrine (ANES) Route: IV, Drug form: INJ, ONCE, Stop date: 08/11/16 10:47:00 CDT Inactive 08/11/2016 [facility] morphine Sulfate (ANES) Route: INTRATHECAL, Drug form: INJ, ONCE, Stop date: 08/11/16 10:47:00 CDT Inactive 08/11/2016 [facility] cloNIDine (ANES) Route: INTRATHECAL, Drug form: INJ, ONCE, Stop date: 08/11/16 10:47:00 CDT Inactive 08/11/2016 [facility] famotidine (ANES) Route: IV, Drug form: INJ, ONCE, Stop date: 08/11/16 10:27:00 CDT Inactive 08/11/2016 [facility] acetaminophen (ANES) Route: IV, Drug form: INJ, ONCE, Stop date: 08/11/16 10:27:00 CDT Inactive 08/11/2016 [facility] midazolam (ANES) Route: IV, Drug form: SOLN, ONCE, Stop date: 08/11/16 10:27:00 CDT Inactive 08/11/2016 [facility] fentaNYL (ANES) Route: IV, Drug form: INJ, ONCE, Stop date: 08/11/16 10:27:00 CDT Inactive 08/11/2016 [facility] ceFAZolin (ANES) Route: IV, Drug form: INJ, ONCE, Stop date: 08/11/16 10:27:00 CDT Inactive 08/11/2016 [facility] LR 1000 mL INJ (ANES) Route: IV, Total Volume: 1,000, Start date: 08/11/16 9:30:00 CDT, Stop date: 08/11/16 10:30:00 CDT Inactive 08/11/2016 [facility] Albuterol 0.833 MG/ML / Ipratropium [place] 0.167 MG/ML Inhalant Solution [DuoNeb] 3 ml, Route: NEB, Drug Form: SOLN, Dosing Weight 97.909, kg, PRN, PRN Respiratory Protocol, Start date: 08/11/16 9:01:00 CDT, Duration: 30 day, Stop date: 09/10/16 9:00:00 CDTNotes: (Same as: Duoneb) Inactive 08/11/2016 [facility] Calcium Chloride 0.0014 MEQ/ML / Potassium Chloride 0.004 MEQ/ML / Sodium Chloride 0.103 MEQ/ML / Sodium Lactate 0.028 MEQ/ML Injectable Solution 1,000 mL, Rate: 25 ml/hr, Infuse over: 40 hr, Route: IV, Dosing Weight 97.909 kg, Total Volume: 1,000, Start date: 08/11/16 9:01:00 CDT, Stop date: 08/11/16 20:00:00 CDT Inactive 08/11/2016 [facility] cloNIDine Route: EPIDURAL, Drug form: INJ, ONCE, Start date: 08/11/16 9:00:00 CDT, Stop date: 08/11/16 9:00:00 CDTNotes: NOT FOR INTRAVENOUS USE. Preservative-free. (Same As: Duraclon) Inactive 08/11/2016 [facility] lisinopril 20 mg oral tablet 20 mg=1 tab, PO, Daily, # 30 tab, 0 Refill(s) Active 07/29/2016 [facility] lisinopril 20 mg oral tablet 20 mg=1 tab, PO, Daily, # 30 tab, 0 Refill(s) No Longer Active 07/28/2016 [facility] NPH Insulin, Human 100 UNT/ML Injectable Suspension [Humulin N] 30 units, SUB-Q, BID, # 10 mL, 0 Refill(s) Active 07/28/2016 [facility] Insulin Glargine 100 UNT/ML Injectable Solution [Lantus] 20 unit, SUB-Q, Bedtime, # 10 mL, 3 Refill(s) Active 07/28/2016 [facility] Aspirin Enteric Coated 81 mg oral delayed release tablet 81 mg=1 tab, PO, Daily, 0 Refill(s) Active 07/28/2016 [facility] amLODIPine 10 mg oral tablet 10 mg=1 tab, PO, Daily, # 30 tab, 0 Refill(s) Active 07/28/2016 [facility] Indapamide 2.5 MG Oral Tablet 2.5 mg=1 tab, PO, QAM, # 30 tab, 0 Refill(s) Active 07/28/2016 [facility] Glipizide 5 MG Oral Tablet 5 mg=1 tab, PO, BID-Before Meals, # 30 tab, 1 Refill(s) Active 07/28/2016 [facility] omeprazole 20 mg oral enteric coated tablet 20 mg=1 tab, PO, Daily, # 30 tab, 3 Refill(s) Active 07/28/2016 [facility] Allergies, Adverse Reactions, Alerts Substance Category Reaction Severity Reaction type Status Date Reported Comments Source Immunizations Immunization Date Given Site Status Last Updated Comments Source Results Order Name Results Value Reference Range Date Interpretation Comments Source Knee 1-2 Views unilateral DX Knee 1-2 Views unilateral DX Study: Right knee, 2 views Clinical Indication: Right knee pain status post fall Comparison: Plain films of the right knee from 08/11/2016 FINDINGS: Multiple views of the right knee show stable changes of total knee arthroplasty and patellar resurfacing with overlying soft tissue swelling, soft tissue gas, and surgical skin steve. No perihardware fracture or joint dislocation is seen. IMPRESSION: Stable changes of right total knee arthroplasty without acute bony abnormality or hardware complication. SL: [id number] 08/12/2016 - - Read by: Dionisio Bartlett MD Dictated Date/time: 08/12/16 16:15 Electronically Signed by: Dionisio Bartlett MD 08/12/16 16:16 FINAL REPORT [facility] ELECTROLYTES AGAP 11.7 meq/L 10.0 - 20.0 08/12/2016 [facility] ELECTROLYTES Sodium Lvl 139 meq/L 135 - 145 08/12/2016 [facility] ELECTROLYTES Glucose Lvl 204 mg/dL 70 - 99 08/12/2016 [facility] ELECTROLYTES Creatinine Lvl 0.96 mg/dL 0.50 - 1.40 08/12/2016 [facility] ELECTROLYTES BUN 18 mg/dL 7 - 22 08/12/2016 [facility] ELECTROLYTES eGFR 103 mL/min/1.73m2 08/12/2016 Result Comment: The eGFR is calculated using the [...] from the National Kidney Disease Education Program (NKDEP) which additionally recommends that when the eGFR is used in patients with extremes of body mass index for purposes of drug dosing, the eGFR should be multiplied by the estimated BMI. [facility] ELECTROLYTES Potassium Lvl 3.7 meq/L 3.5 - 5.1 08/12/2016 [facility] ELECTROLYTES CO2 32 meq/L 24 - 32 08/12/2016 [facility] ELECTROLYTES Chloride Lvl 99 meq/L 95 - 109 08/12/2016 [facility] ELECTROLYTES Calcium Lvl 8.1 mg/dL 8.5 - 10.5 08/12/2016 [facility] HEMATOLOGY RBC 4.73 M/CMM 4.70 - 6.10 08/12/2016 [facility] HEMATOLOGY Hct 41.5 % 42.0 - 54.0 08/12/2016 [facility] HEMATOLOGY Hgb 14.0 g/dL 14.0 - 18.0 08/12/2016 [facility] HEMATOLOGY MCH 29.5 pg 27.0 - 31.0 08/12/2016 [facility] HEMATOLOGY MCV 87.8 fL 80.0 - 94.0 08/12/2016 [facility] HEMATOLOGY WBC 7.1 K/CMM 3.7 - 10.4 08/12/2016 [facility] HEMATOLOGY MCHC 33.6 g/dL 32.0 - 36.0 08/12/2016 [facility] HEMATOLOGY RDW 13.4 % 11.5 - 14.5 08/12/2016 [facility] HEMATOLOGY MPV 8.8 fL 7.4 - 10.4 08/12/2016 [facility] HEMATOLOGY Platelet 116 K/CMM 133 - 450 08/12/2016 [facility] SPECIAL CHEMISTRY Hgb A1C 9.4 % <=5.6 % 08/12/2016 [facility] Knee 1-2 Views unilateral DX Knee 1-2 Views unilateral DX Study: Knee 1-2 Views unilateral DX Age Male 56 years old Clinical Indication: Arthritis; postop Comparison: None FINDINGS: A set of 2 views for the right knee exam show normal alignment without fractures or dislocations. There is a knee joint prosthesis in position. Numerous cutaneous steve are present anteriorly in the midline. There is gas in the joint space and suprapatellar bursa. Gas is seen deep to the patellar tendon as well. There is mild knee region soft tissue swelling. There are no joint bodies. There is no joint effusion. IMPRESSION: 1. No fractures or dislocation of the right knee. 2. Knee joint prosthesis and postoperative changes with satisfactory alignment. 3. Residual gas in the soft tissues associated with recent surgery. SL: [id number] 08/11/2016 - - Read by: Alexis Archer MD Dictated Date/time: 08/11/16 13:25 Electronically Signed by: Alexis Archer MD 08/11/16 13:27 FINAL REPORT [facility] BACTERIAL - SEROLOGY MRSA by PCR Negative (07/30/16 12:50 PM) 07/30/2016 [facility] CHEM PANEL eGFR 101 mL/min/1.73m2 07/29/2016 Result Comment: The eGFR is calculated using the [...] from the National Kidney Disease Education Program (NKDEP) which additionally recommends that when the eGFR is used in patients with extremes of body mass index for purposes of drug dosing, the eGFR should be multiplied by the estimated BMI. [facility] CHEM PANEL Total Protein 7.5 g/dL 6.4 - 8.4 07/29/2016 [facility] CHEM PANEL ALT 87 unit/L 0 - 65 07/29/2016 [facility] CHEM PANEL AST 57 unit/L 0 - 37 07/29/2016 [facility] CHEM PANEL Bili Total 0.6 mg/dL 0.2 - 1.3 07/29/2016 [facility] CHEM PANEL Alk Phos 96 unit/L 39 - 136 07/29/2016 [facility] CHEM PANEL Creatinine Lvl 0.98 mg/dL 0.50 - 1.40 07/29/2016 [facility] CHEM PANEL Chloride Lvl 102 meq/L 95 - 109 07/29/2016 [facility] CHEM PANEL CO2 29 meq/L 24 - 32 07/29/2016 [facility] CHEM PANEL Potassium Lvl 3.8 meq/L 3.5 - 5.1 07/29/2016 [facility] CHEM PANEL BUN 23 mg/dL 7 - 22 07/29/2016 [facility] CHEM PANEL Sodium Lvl 139 meq/L 135 - 145 07/29/2016 [facility] CHEM PANEL Glucose Lvl 255 mg/dL 70 - 99 07/29/2016 [facility] CHEM PANEL Albumin Lvl 3.3 g/dL 3.5 - 5.0 07/29/2016 [facility] CHEM PANEL Calcium Lvl 9.0 mg/dL 8.5 - 10.5 07/29/2016 [facility] CHEM PANEL B/C Ratio 23 6 - 25 07/29/2016 [facility] CHEM PANEL A/G Ratio 0.8 0.7 - 1.6 07/29/2016 [facility] CHEM PANEL Globulin 4.2 g/dL 2.7 - 4.2 07/29/2016 [facility] CHEM PANEL AGAP 11.8 meq/L 10.0 - 20.0 07/29/2016 [facility] HEMATOLOGY INR 0.99 0.85 - 1.17 07/29/2016 [facility] HEMATOLOGY PT 13.4 s 12.0 - 14.7 07/29/2016 [facility] HEMATOLOGY PTT 35.8 s 22.9 - 35.8 07/29/2016 [facility] HEMATOLOGY Eosinophils 2.9 % 0.0 - 4.0 07/29/2016 [facility] HEMATOLOGY Segs-Bands # 4.3 K/CMM 1.5 - 8.1 07/29/2016 [facility] HEMATOLOGY Basophils 0.5 % 0.0 - 1.0 07/29/2016 [facility] HEMATOLOGY Eosinophils # 0.2 K/CMM 0.0 - 0.5 07/29/2016 [facility] HEMATOLOGY Monocytes # 0.4 K/CMM 0.0 - 0.8 07/29/2016 [facility] HEMATOLOGY Lymphocytes # 1.0 K/CMM 1.0 - 5.5 07/29/2016 [facility] HEMATOLOGY Segs 72.0 % 45.0 - 75.0 07/29/2016 [facility] HEMATOLOGY Lymphocytes 17.1 % 20.0 - 40.0 07/29/2016 [facility] HEMATOLOGY Monocytes 7.5 % 2.0 - 12.0 07/29/2016 [facility] HEMATOLOGY Platelet 127 K/CMM 133 - 450 07/29/2016 [facility] HEMATOLOGY MPV 9.0 fL 7.4 - 10.4 07/29/2016 [facility] HEMATOLOGY Hgb 16.5 g/dL 14.0 - 18.0 07/29/2016 [facility] HEMATOLOGY MCHC 33.9 g/dL 32.0 - 36.0 07/29/2016 [facility] HEMATOLOGY RDW 13.5 % 11.5 - 14.5 07/29/2016 [facility] HEMATOLOGY MCH 29.5 pg 27.0 - 31.0 07/29/2016 [facility] HEMATOLOGY WBC 5.9 K/CMM 3.7 - 10.4 07/29/2016 [facility] HEMATOLOGY RBC 5.60 M/CMM 4.70 - 6.10 07/29/2016 [facility] HEMATOLOGY MCV 86.9 fL 80.0 - 94.0 07/29/2016 [facility] HEMATOLOGY Hct 48.6 % 42.0 - 54.0 07/29/2016 [facility] URINE AND STOOL UA Sq Epi Occasional /LPF Few /LPF 07/29/2016 [facility] URINE AND STOOL UA RBC 0-2 /HPF 0 - 2 07/29/2016 [facility] URINE AND STOOL UA Bacteria Occasional /HPF None Seen /HPF 07/29/2016 [facility] URINE AND STOOL UA WBC 0-2 /HPF None Seen /HPF 07/29/2016 [facility] URINE AND STOOL UA Mucus None Seen (07/29/16 8:43 AM) None Seen 07/29/2016 [facility] URINE AND STOOL Micro? Performed (07/29/16 8:43 AM) 07/29/2016 [facility] URINE AND STOOL UA Nitrite Negative (07/29/16 8:43 AM) Negative 07/29/2016 [facility] URINE AND STOOL UA Leuk Est Negative (07/29/16 8:43 AM) Negative 07/29/2016 [facility] URINE AND STOOL UA Urobilinogen 1.0 EU/dL 0.1 - 1.0 07/29/2016 [facility] URINE AND STOOL UA Ketones Negative *NA* (07/29/16 8:43 AM) Negative 07/29/2016 [facility] URINE AND STOOL UA Blood Moderate *ABN* (07/29/16 8:43 AM) Negative 07/29/2016 [facility] URINE AND STOOL UA Bili Negative *NA* (07/29/16 8:43 AM) Negative 07/29/2016 [facility] URINE AND STOOL UA pH 5.5 5.0 - 8.0 07/29/2016 [facility] URINE AND STOOL UA Spec Grav 1.025 <=1.030 07/29/2016 [facility] URINE AND STOOL UA Protein 100 mg/dL Negative mg/dL 07/29/2016 [facility] URINE AND STOOL UA Glucose >=1000 mg/dL Negative mg/dL 07/29/2016 [facility] URINE AND STOOL UA Turbidity Clear (07/29/16 8:43 AM) Clear 07/29/2016 [facility] URINE AND STOOL UA Color Yellow *NA* (07/29/16 8:43 AM) Yellow 07/29/2016 [facility] Chest 2 views DX Chest 2 views DX Patient Name: LIBORIO GRIDER : 1960; Age: 56 years y/o Male MR: [id number] * CHEST, 2 views HISTORY: Z01.818 Encounter for other preprocedural examination COMPARISON: None TECHNIQUE: Frontal and lateral radiographs of the chest were obtained. FINDINGS: The lungs are clear. There are no pleural effusions. The heart and pulmonary vasculature are within normal limits. There are mild degenerative changes involving the acromioclavicular joints. The regional skeleton is unremarkable. IMPRESSION: 1. No active disease. SL: [id number] 07/29/2016 - - Read by: Scooter Dickson MD Dictated Date/time: 07/29/16 08:58 Electronically Signed by: Scooter Dickson MD 07/29/16 09:00 FINAL REPORT [facility] Vital Signs Vital Sign Value Date Comments Source Systolic (mm Hg) 130 08/13/2016 [facility] Diastolic (mm Hg) 78 08/13/2016 [facility] Systolic (mm Hg) 153 08/13/2016 [facility] Diastolic (mm Hg) 88 08/13/2016 [facility] Respitory Rate 11 08/13/2016 [facility] Systolic (mm Hg) 180 08/13/2016 [facility] Diastolic (mm Hg) 80 08/13/2016 [facility] Heart Rate 72 08/13/2016 [facility] Temperature Oral (F) 98.7 F 08/13/2016 [facility] Respitory Rate 20 08/13/2016 [facility] Respitory Rate 20 08/13/2016 [facility] Temperature Oral (F) 98.9 F 08/13/2016 [facility] Heart Rate 70 08/13/2016 [facility] Heart Rate 65 08/13/2016 [facility] Temperature Oral (F) 99.1 F 08/13/2016 [facility] Height 165.1 cm 08/11/2016 [facility] Weight 121.449 08/11/2016 [facility] BMI Calculated 44.56 08/11/2016 [facility] Weight 97.909 07/29/2016 [facility] BMI Calculated 37.05 07/29/2016 [facility] Height 162.56 cm 07/29/2016 [facility] Encounters Location Location Details Encounter Type Encounter Number Reason For Visit Attending Provider ADM Date DC Date Status Source [facility] Inpatient [id number] Saul Angel 08/11/2016 08/13/2016 [facility] Procedures Procedure Code Date Perfomer Comments Source Arthroscopy<sup>1</sup> [id number] viral [place] [facility]
[2018-10-12 14:05] VITALS: BP 143/92
--- NOTE | 2018-10-20 08:41 | Operative Report ---
DATE OF PROCEDURE: October 12, 2018 PREOPERATIVE DIAGNOSIS: Erectile dysfunction. POSTOPERATIVE DIAGNOSIS: Erectile dysfunction. OPERATION PERFORMED: Insertion of inflatable penile prosthesis. ANESTHESIA: General anesthesia. ESTIMATED BLOOD LOSS: 100 mL. INDICATIONS: Mr. Jori Beckett is a 58-year-old diabetic male with a long history of erectile dysfunction, which is now recalcitrant to conservative therapy. He now presents for definitive surgical management of this problem. PROCEDURE IN DETAIL: Patient was brought in the operating room and placed in supine position. After administration of general anesthesia, he was prepped and draped in usual sterile fashion. A Sauceda catheter was placed and it was clamped. A penoscrotal incision was made sharply and dissection was carried out to the base of the penis. The left corporeal body was incised sharply and dilated using the dilators. The corporeal body was measured and noted to be 20 cm in total length on the left side. The corporeal incision was then made on the right side and again the corporeal body was dilated up to approximately size 12. Again, the corporeal body measured 20 cm in total length. A decision was made to place a 15-cm CX, prosthesis with 5-cm RTEs on both sides. This was placed without difficulty and was noted to have a good fit. The distal portion of the prosthesis was brought to the glans using a Calvin needle and sutured. This was ultimately cut from the penis once the corporeal body was sutured closed. The suturing of the corporal body took place with PDS stitch taking great care to prevent injury to the previously placed corporeal device. A subdartos pocket was then created in the scrotum and the pump was placed in this location. The dartos over this was closed using interrupted 0 Vicryl sutures. A separate horizontal incision was made in the right groin given that the patient was right-handed and dissection was carried out through the layers of the abdomen. A horizontal incision was made over the rectus muscle and then a subrectus pocket was created. This was infiltrated using 0.25% Marcaine. The reservoir was placed in this location, which was and tight and filled with 95 mL of fluid. The tubing from the mesh was brought out from a separate stab incision inferior to the horizontal incision. The horizontal incision was then closed using running Vicryl suture again taking great care to prevent injury to the prosthetic device. The reservoir and pump were connected using the quick connect method up in the groin. This provided a good seal. The device was noted to cycle without difficulty with good inflation and deflation noted. Both wounds were copiously irrigated with antibiotic solution and closed in layers with skin being closed with subcuticular stitch. The wounds were then cleaned and dried and covered with Mastisol, Steri-Strips, Telfa, and Tegaderm. The Sauceda catheter was removed and anesthesia was reversed. He was transferred to a bed and taken to the postanesthesia care unit in good condition. Of note, the needle and instrument count were correct at the conclusion of the case. Job#: [id number] MEER[facility]
== END | disposition home or self-care (01) ==
LOC: OR 07:46
PROVIDERS: ATTEND Urology
DX: N52.9 Male erectile dysfunction, unspecified (principal); I10 Essential (primary) hypertension; E11.9 Type 2 diabetes mellitus without complications; K21.9 Gastro-esophageal reflux disease without esophagitis; Z79.82 Long term (current) use of aspirin; Z79.4 Long term (current) use of insulin; Z68.35 Body mass index [BMI] 35.0-35.9, adult; Z96.651 Presence of right artificial knee joint
CPT/HCPCS: 36415 ×2; 54401; 80048; 82948; C1813; J0131; J0696; J1100; J2001 ×2; J2250; J2370; J2405; J2704